=== PATIENT | female | born 1950 | race Caucasian/White ===

== ENCOUNTER 2018-10-24 19:44 | Observation (INO) | payer MEDICARE, BC ==
[~2018-10-24] VITALS: Ht 154.9 cm; Wt 77.3 kg
[2018-10-24] MEDS ORDERED: CATAPRES0.1 MG (19:51)
[2018-10-24] MEDS ORDERED: LIPITOR20 MG (19:51)
[2018-10-24] MEDS ORDERED: LISINOPRIL10 MG (19:51)
[2018-10-24] MEDS ORDERED: AMBIEN10 MG PO (19:51)
[2018-10-24 20:19] LABS: BASOPHILS 0.9 % (0-2); EOSINOPHILS 1.9 % (0-7); HEMATOCRIT 36.5 % (36.0-48.0); HEMOGLOBIN 12.5 g/dL (12-16); IMMATURE GRANULOCYTES 0.3 % (0-5); LYMPHOCYTES 41.3 % (15-50); MCH 30.3 pg (26.0-34.0); MCHC 34.2 g/dL (31.0-37.0); MCV 88.6 fL (80.0-100.0); MEAN PLATELET VOLUME 8.9 fL (7.4-10.4); MONOCYTES 9.8 % (2-11); NEUTROPHILS 45.8 % (40-80); PLATELET COUNT 210 10x3/uL (130-400); RBC 4.12 10x6/uL (4.00-5.40); RDW 13.7 % (11.5-14.5); WBC 6.9 10x3/uL (4.8-10.8)
[2018-10-24] MEDS ORDERED: SYNTHROID25 MCG (20:19)
[2018-10-24] MEDS ORDERED: HYDROCHLOROTHIA50 MG (20:24)
[2018-10-24] MEDS ORDERED: COZAAR100 MG PO (20:25)
[2018-10-24] MEDS ORDERED: POTASSIUM CHLO10 ME1 PO (20:25)
[2018-10-24] MEDS ORDERED: SYNTHROID125 MCG PO (20:26)
[2018-10-24] MEDS ORDERED: OXYBUTYNIN CHLOR5 MG PO (20:26)
[2018-10-24 20:29] LABS: APTT 39.7 SECONDS (22.8-39.4); INR 1.23 (0.85-1.17)
[2018-10-24 20:41] LABS: ALBUMIN 3.5 g/dL (3.4-5.0); ANION GAP 11.8 mmol/L (8-16); BILIRUBIN - TOTAL 0.74 mg/dL (0.2-1.3); CALCIUM 8.9 mg/dL (8.5-10.1); CARBON DIOXIDE 27.9 mmol/L (21.0-32.0); PROTEIN - SERUM 6.8 g/dL (6.4-8.2)
[2018-10-24 20:46] LABS: POTASSIUM - SERUM 2.7 mmol/L (3.5-5.1)
--- NOTE | 2018-10-24 21:45 | NUR ---
PT TO SURGERY AT THIS TIME.
--- NOTE | 2018-10-24 22:30 | NUR ---
RECIEVED TO FLOOR ACCOMPANIED BY STAFF AND FAMILY. A&O X 4, DENIES PAIN AT THIS TIME. PERIPHERAL PULSES PALPABLE. ABDUCTION PILLOW IN USE. PT VOICED URGE TO VOID, VOIDED CLEAR, YELLOW, URINE. VITALS STABLE, DENIES CHILLS/SHIVERING. DENIES FURTHER NEEDS AT THIS TIME. WILL CONTINUE TO MONITOR.
[2018-10-24 22:50] VITALS: BP 122/59
--- NOTE | 2018-10-25 04:34 | NUR ---
I have reviewed this patient and I concur with the Shift Assessment completed by the Licensed Practical Nurse today this shift.
[2018-10-25 05:40] VITALS: BP 119/50
[2018-10-25 05:43] VITALS: BP 122/59; Ht 154.9 cm; Wt 77.3 kg
[2018-10-25 06:41] LABS: BASOPHILS 0.2 % (0-2); EOSINOPHILS 0 % (0-7); HEMATOCRIT 36.4 % (36.0-48.0); HEMOGLOBIN 12.3 g/dL (12-16); IMMATURE GRANULOCYTES 0.3 % (0-5); LYMPHOCYTES 10.6 % (15-50); MCH 30.1 pg (26.0-34.0); MCHC 33.8 g/dL (31.0-37.0); MCV 89.2 fL (80.0-100.0); MEAN PLATELET VOLUME 9.5 fL (7.4-10.4); MONOCYTES 1.1 % (2-11); NEUTROPHILS 87.8 % (40-80); PLATELET COUNT 220 10x3/uL (130-400); RBC 4.08 10x6/uL (4.00-5.40); RDW 13.8 % (11.5-14.5); WBC 6.3 10x3/uL (4.8-10.8)
[2018-10-25 07:04] LABS: ALBUMIN 2.9 g/dL (3.4-5.0); BILIRUBIN - TOTAL 0.6 mg/dL (0.2-1.3); CALCIUM 8.4 mg/dL (8.5-10.1); CARBON DIOXIDE 23.1 mmol/L (21.0-32.0); PROTEIN - SERUM 6.2 g/dL (6.4-8.2)
[2018-10-25 07:24] LABS: ANION GAP 16.6 mmol/L (8-16)
[2018-10-25 07:29] LABS: POTASSIUM - SERUM 2.7 mmol/L (3.5-5.1)
--- NOTE | 2018-10-25 08:15 | NUR ---
AWAKE AND ALERT. ORIENTED X3. NO C/O AT THIS TIME. LUNGS ARE CLEAR BIALTERALLY, NO COUGH NOTED. SKIN IS INTACT WITHOUT REDNESS. IV TO RIGHT AC IS PATENT WITHOUT REDNESS AT INSERTION SITE. TREATED LOW POTASSIUM AT THIS TIME. DENIES NEEDS.
[2018-10-25 08:28] VITALS: BP 114/50
--- NOTE | 2018-10-25 10:00 | NUR ---
RESTING QUIETLY IN BED. DENIES NEEDS.
[2018-10-25 12:42] VITALS: BP 123/48
--- NOTE | 2018-10-25 13:38 | MORECARE ---
CASE MANAGEMENT DISCHARGE SUMMARY PATIENT: EWA MYAER UNIT: [id number] ADM DATE: 10/24/18 AGE: 68 : 49 SEX: F ROOM/BED: D.2206 AUTHOR: ETHEL STRICKLAND PHYSICIAN: REFERRING PHYSICIAN: LISHA RAUSCH MD DATE OF SERVICE: 10/25/18 Discharge Plan Patient Name: EWA MAYER [facility] : 1950 Planned Disposition: Home Anticipated Discharge Date: Discharge Date: Expected LOS: Initial Reviewer: [email or web address] Initial Review Date: 10/24/2018 Generated: 10/25/18 2:37 pm DCPIA - Discharge Planning Initial Assessment Updated by [email or web address]: Yvette Preston on 10/25/18 1:37 pm * Is the patient Alert and Oriented? Yes * How many steps to enter\exit or inside your home? * PCP NONE * Pharmacy [facility] [address] * Preadmission Environment Home with Family * ADLs Independent * Equipment Back Brace Bedside Commode * List name and contact numbers for known caregivers / representatives who currently or will assist patient after discharge: CHARISSE MIKE [phone] * Verbal permission to speak to the caregivers and representatives has been obtained from the patient. N/A * Community resources currently utilized None * Additional services required to return to the preadmission environment? Yes * Can the patient safely return to the preadmission environment? Yes * Has this patient been hospitalized within the prior 30 days at any hospital? No External Providers External Provider: [facility] Next Contact Date: Service Request Date: Service Type: Resolution: Reviewer: Comments: Patient Name: EWA MAYER Page 53944 at 1338 All edits/amendments must be made on the electronic document DICTATION DATE: 10/25/181336 BIOMEDICAL ENGINEERING DIRECTOR: HONG 10/25/181336 RPT#: [id number] DC DATE: STATUS: ADM IN [facility] [address] [place] [address] END OF REPORT
--- NOTE | 2018-10-25 13:48 | MORECARE ---
CASE MANAGEMENT DISCHARGE SUMMARY PATIENT: EWA MAYER UNIT: [id number] ADM DATE: 10/24/18 AGE: 68 : 49 SEX: F ROOM/BED: D.2206 AUTHOR: MARCO ADOC PHYSICIAN: REFERRING PHYSICIAN: LISHA RAUSCH MD DATE OF SERVICE: 10/25/18 Discharge Plan Patient Name: EWA MAYER Facility: [facility]:[place] : 1950 Planned Disposition: Home Anticipated Discharge Date: Discharge Date: Expected LOS: Initial Reviewer: [email or web address] Initial Review Date: 10/24/2018 Generated: 10/25/18 2:48 pm Comments DCP- Discharge Planning Updated by [email or web address]: Yvette Preston on 10/25/18 12:[address] Patient Name: EWA MAYER Admission Status: ER Accout number: [id number] Admission Date: 10-24-2018 : 1950 Admission Diagnosis: Attending: LISHA RAUSCH Current LOS: 1 Anticipated DC Date: Planned Disposition: Home Primary Insurance: MEDICARE A & B Discharge Planning Comments: CM met with patient to complete initial dc planning assessment. CM educated patient on the CM role and verbal consent given by patient to complete assessment. Patient has just moved to [place] 3 days ago and her 15 year old grandchild will be living with her. Her sister will be driving her home. At discharge patient plans to return home and feels this is a safe discharge. CM discussed availability of home health, rehab services, and medical equipment. She did not want home health. She has a Bedside Commode & has a walker, but it is packed somewhere. She would like to get another one if possible. I have sent the order to [facility] (patient did not care where is was obtained from) CM will continue to follow and will assist as needed with dc plans/needs. Forestry Workers: Yvette Preston DCPIA - Discharge Planning Initial Assessment Updated by [email or web address]: Yvette Preston on 10/25/18 1:37 pm * Is the patient Alert and Oriented? Yes * How many steps to enter\exit or inside your home? * PCP NONE * Pharmacy [facility] [address] * Preadmission Environment Home with Family * ADLs Independent * Equipment Back Brace Bedside Commode * List name and contact numbers for known caregivers / representatives who currently or will assist patient after discharge: CHARISSE MCKEON [phone] * Verbal permission to speak to the caregivers and representatives has been obtained from the patient. N/A * Community resources currently utilized None * Additional services required to return to the preadmission environment? Yes * Can the patient safely return to the preadmission environment? Yes * Has this patient been hospitalized within the prior 30 days at any hospital? No Last DP export: 10/25/18 12:38 pm Patient Name: EWA MAYER Page [phone] at 1348 All edits/amendments must be made on the electronic document DICTATION DATE: 10/25/181347 NETBACKUP ADMINISTRATOR: HONG 10/25/18 1348 RPT#: [id number] DC DATE: STATUS: ADM IN [facility] [address] [place] [address] END OF REPORT
[2018-10-25 16:06] VITALS: BP 106/52
--- NOTE | 2018-10-25 17:23 | NUR ---
DISCHARGED TO HOME AMBULATORY WITH FAMILY. DISCHARGE INSTRUCTIONS GIVEN BOTH VERBALLY AND WRITTEN. ALL QUESTIONS ANSWERED. PATIENT VERBALIZED UNDERSTANDING OF SAME. IV TO RIGHT FOREARM D/C WITH CATHETER INTACT. ALL BELONGINGS WITH PATIENT. NO NEW PRESCRIPTIONS NEEDED.
--- NOTE | 2018-10-28 14:18 | MORECARE ---
CASE MANAGEMENT DISCHARGE SUMMARY PATIENT: EWA MAYER UNIT: [id number] ADM DATE: 10/24/18 AGE: 68 : 49 SEX: F ROOM/BED: D.2206 AUTHOR: MARCO ADOC PHYSICIAN: REFERRING PHYSICIAN: LISHA RAUSCH MD DATE OF SERVICE: 10/28/18 Discharge Plan Patient Name: EWA MAYER Facility: [facility]:[place] : 1950 Planned Disposition: Home Anticipated Discharge Date: Discharge Date: 10/25/2018 Expected LOS: Initial Reviewer: [email or web address] Initial Review Date: 10/24/2018 Generated: 10/28/18 3:18 pm Comments DCP- Discharge Planning Updated by [email or web address]: Yvette Preston on 10/25/18 12:[address] Patient Name: EWA MAYER Admission Status: ER Accout number: [id number] Admission Date: 10-24-2018 : 1950 Admission Diagnosis: Attending: LISHA RAUSCH Current LOS: 1 Anticipated DC Date: Planned Disposition: Home Primary Insurance: MEDICARE A & B Discharge Planning Comments: CM met with patient to complete initial dc planning assessment. CM educated patient on the CM role and verbal consent given by patient to complete assessment. Patient has just moved to [place] 3 days ago and her 15 year old grandchild will be living with her. Her sister will be driving her home. At discharge patient plans to return home and feels this is a safe discharge. CM discussed availability of home health, rehab services, and medical equipment. She did not want home health. She has a Bedside Commode & has a walker, but it is packed somewhere. She would like to get another one if possible. I have sent the order to [facility] (patient did not care where is was obtained from) CM will continue to follow and will assist as needed with dc plans/needs. Uniforms Sales Representative: Yvette Preston DCPIA - Discharge Planning Initial Assessment Updated by [email or web address]: Yvette Preston on 10/25/18 1:37 pm * Is the patient Alert and Oriented? Yes * How many steps to enter\exit or inside your home? * PCP NONE * Pharmacy [facility] [address] * Preadmission Environment Home with Family * ADLs Independent * Equipment Back Brace Bedside Commode * List name and contact numbers for known caregivers / representatives who currently or will assist patient after discharge: CHARISSE MCKEON [phone] * Verbal permission to speak to the caregivers and representatives has been obtained from the patient. N/A * Community resources currently utilized None * Additional services required to return to the preadmission environment? Yes * Can the patient safely return to the preadmission environment? Yes * Has this patient been hospitalized within the prior 30 days at any hospital? No Last DP export: 10/25/18 12:48 pm Patient Name: EWA MAYER Page 74513 at 1418 All edits/amendments must be made on the electronic document DICTATION DATE: 10/28/181417 CALCULUS PROFESSOR: HONG 10/28/181417 RPT#: [id number] DC DATE:10/25/18 STATUS: DIS IN [facility] [address] [place] [address] END OF REPORT
== END 2018-10-25 17:25 | disposition home or self-care (01) ==
LOC: D.ER 19:44 → OBSVTIME 21:16 → D.MS 21:16
PROVIDERS: Family Medicine; ADMIT Emergency Medicine; ATTEND Emergency Medicine
DX: S73.005A Unspecified dislocation of left hip, initial encounter (principal)

== ENCOUNTER → 2018-12-21 10:00 | Outpatient (CLI) | payer MEDICARE, BC ==
[2018-10-25 05:43] VITALS: BMI 32.2
[~2018-12-21 10:00] MED LIST: AMBIEN10 MG PO; CATAPRES0.1 MG; CATAPRES0.1 MG PO; COZAAR100 MG PO; HYDROCHLOROTHIA50 MG; LIPITOR20 MG; LISINOPRIL10 MG; OXYBUTYNIN CHLOR5 MG PO; POTASSIUM CHLO10 ME1 PO; SYNTHROID125 MCG PO; SYNTHROID25 MCG; TORADOL10 MG PO
== END | disposition home or self-care (01) ==
LOC: D.MAMMO 09:30
PROVIDERS: ATTEND Emergency Medicine
DX: Z12.31 Encounter for screening mammogram for malignant neoplasm of breast (principal)

== ENCOUNTER 2019-01-20 13:49 | Emergency (ER) | payer MEDICARE, BC ==
[~2019-01-20] VITALS: Ht 154.9 cm; Wt 77.3 kg
[~2019-01-20 13:49] MED LIST changes: -CATAPRES0.1 MG PO; -TORADOL10 MG PO
[2019-01-20 14:05] VITALS: Ht 154.9 cm; Wt 77.3 kg
[2019-01-20] MEDS ORDERED: CATAPRES0.1 MG PO (14:09)
[2019-01-20] MEDS ORDERED: TORADOL10 MG PO (19:08)
[2019-01-20 19:44] VITALS: BP 153/47
== END 2019-01-20 19:48 | disposition home or self-care (01) ==
LOC: D.ER 13:49
DX: M25.552 Pain in left hip (principal); I10 Essential (primary) hypertension

== ENCOUNTER 2019-01-22 08:00 | Outpatient (CLI) | payer MEDICARE, BC ==
[2019-01-20 14:05] VITALS: BMI 32.2
[~2019-01-22 08:00] MED LIST changes: +CATAPRES0.1 MG PO; +TORADOL10 MG PO
== END 2019-01-22 23:59 | disposition home or self-care (01) ==
LOC: D.MAMMO 08:00
PROVIDERS: ATTEND Emergency Medicine
DX: R92.8 Other abnormal and inconclusive findings on diagnostic imaging of breast (principal)

== ENCOUNTER 2019-02-04 10:42 | Inpatient (IN) | payer MEDICARE, BC ==
[~2019-02-04] VITALS: Ht 154.9 cm; Wt 77.3 kg
[2019-02-04 12:24] VITALS: BP 152/72
--- NOTE | 2019-02-04 13:25 | NUR ---
SEE PAPER CHARTING FOR PROCEDURAL DOCUMENTATION
[2019-02-04 15:08] VITALS: BP 139/66
[2019-02-04 15:31] VITALS: BP 135/58
--- NOTE | 2019-02-04 17:15 | NUR ---
PATIENT TO OR FOR CLOSED REDUCTION OF LEFT HIP
[2019-02-04 17:50] LABS: BASOPHILS 0.4 % (0-2); EOSINOPHILS 0.4 % (0-7); HEMATOCRIT 36.5 % (36.0-48.0); HEMOGLOBIN 11.9 g/dL (12-16); IMMATURE GRANULOCYTES 0.4 % (0-5); LYMPHOCYTES 20.1 % (15-50); MCH 30.1 pg (26.0-34.0); MCHC 32.6 g/dL (31.0-37.0); MCV 92.4 fL (80.0-100.0); MEAN PLATELET VOLUME 8.7 fL (7.4-10.4); MONOCYTES 6.8 % (2-11); NEUTROPHILS 71.9 % (40-80); PLATELET COUNT 237 10x3/uL (130-400); RBC 3.95 10x6/uL (4.00-5.40); RDW 13.3 % (11.5-14.5); WBC 6.7 10x3/uL (4.8-10.8)
[2019-02-04 17:57] LABS: APTT 32.8 SECONDS (22.8-39.4); INR 1.09 (0.85-1.17); PROTIME 13.6 SECONDS (11.6-15.0)
--- NOTE | 2019-02-04 18:07 | MORECARE ---
CASE MANAGEMENT DISCHARGE SUMMARY PATIENT: EWA MAYER UNIT: [id number] ADM DATE: 02/04/19 AGE: 68 : 49 SEX: F ROOM/BED: D.2214 AUTHOR: MARCO A,DOC PHYSICIAN: REFERRING PHYSICIAN: ADONAY VOSS MD DATE OF SERVICE: 02/04/19 Discharge Plan Patient Name: EWA MAYER Facility: [facility]:[place] : 1950 Planned Disposition: Outpatient PT\OT Anticipated Discharge Date: 02/06/19 Discharge Date: Expected LOS: 2 Initial Reviewer: [email or web address] Initial Review Date: 02/04/2019 Generated: 02/04/19 7:07 pm DCP- Discharge Planning Updated by [email or web address]: Stephanie Handy on 02/04/19 5:[address] DC PLAN: Unsure at this time - depends on what procedure she has. ANTICIPATED DC NEEDS: Rehab, HH, or back to OP PT. CM met with patient to complete initial dc planning assessment. CM educated patient on the CM role and verbal consent given by patient to complete assessment. CM verified patient's address, phone number, and emergency contact phone numbers. Patient lives at home and reports her 15 yo grandson lives with her. At discharge patient plans to return home if able but stated it depends on what Dr. Salinas thinks she needs to do. She is currently in OP Physical Therapy at [facility]. CM discussed availability of home health, rehab services, and medical equipment. Transportation provider at discharge will be her grandson or her sister . CM will continue to follow and will assist as needed with dc plans/needs. Stephanie Handy RN, [facility] DCPIA - Discharge Planning Initial Assessment Updated by [email or web address]: Stephanie Handy on 02/04/19 6:04 pm * Is the patient Alert and Oriented? Yes * PCP Dr. Fischer * Pharmacy Mail order or [facility] [address] * Preadmission Environment Home with Family * ADLs Independent * Equipment Bedside Commode Rolling Walker * List name and contact numbers for known caregivers / representatives who currently or will assist patient after discharge: Jed Mayer - son - [phone] Colette Lucas - sister - [phone] * Verbal permission to speak to the caregivers and representatives has been obtained from the patient. Yes * Community resources currently utilized Other * Please name any agencies selected above. OP physical therapy @ [facility] * Additional services required to return to the preadmission environment? Yes * Can the patient safely return to the preadmission environment? Yes * Has this patient been hospitalized within the prior 30 days at any hospital? No Patient Name: EWA MAYER Page 19295 at 1807 All edits/amendments must be made on the electronic document DICTATION DATE: 02/04/191806 OR ASSISTANT: HONG 02/04/191806 RPT#: [id number] DC DATE: STATUS: ADM IN [facility] [address] [place] [address] END OF REPORT
[2019-02-04 18:11] LABS: ALBUMIN 3.2 g/dL (3.4-5.0); ANION GAP 12.2 mmol/L (8-16); BILIRUBIN - TOTAL 0.75 mg/dL (0.2-1.3); CALCIUM 8.6 mg/dL (8.5-10.1); CARBON DIOXIDE 28.2 mmol/L (21.0-32.0); CREATININE - SERUM 0.9 mg/dL (0.6-1.3); MAGNESIUM - SERUM 1.5 mg/dL (1.8-2.4); POTASSIUM - SERUM 3.4 mmol/L (3.5-5.1); PROTEIN - SERUM 6.2 g/dL (6.4-8.2)
[2019-02-04 18:35] VITALS: BP 140/51; Ht 154.9 cm; Wt 77.3 kg
[2019-02-04 18:49] VITALS: BP 132/55
--- NOTE | 2019-02-04 18:52 | NUR ---
PATIENT RECIEVED FROM RECOVERY POST LEFT HIP CLOSED REDUCTION. ALERT, NO PAIN AT THIS TIME
[2019-02-04 20:00] VITALS: BP 131/60
--- NOTE | 2019-02-04 20:00 | NUR ---
PT SITTING UP IN BED WITHOUT DISTRESS, AOX4. EATING SANDWICH. FAMILY AT BEDSIDE. DENIES PAIN OR NEEDS. CL IN REACH, WILL CTM
[2019-02-05] VITALS: BP 119/47
[2019-02-05 03:53] LABS: APPEARANCE CLEAR (CLEAR); BILIRUBIN NEGATIVE (NEGATIVE); COLOR YELLOW (YELLOW); GLUCOSE NEGATIVE (NEGATIVE); KETONE NEGATIVE (NEGATIVE); NITRITE NEGATIVE (NEGATIVE); PROTEIN 1+ mg/dL (NEGATIVE); SPECIFIC GRAVITY 1.015 (1.005-1.020); UROBILINOGEN NORMAL (NORMAL)
[2019-02-05 03:54] LABS: BACTERIA FEW /hpf (NEGATIVE); EPITHELIAL CELLS 0-5 /hpf (0-5); RED CELLS - URINE 0-5 /hpf (0-5); WHITE CELLS - URINE 0-5 /hpf (NEGATIVE)
[2019-02-05 04:30] VITALS: BP 119/48
[2019-02-05 06:23] LABS: IMMATURE GRANULOCYTES 0.5 % (0-5)
[2019-02-05 06:39] LABS: HEMATOCRIT 34.3 % (36.0-48.0); HEMOGLOBIN 11.1 g/dL (12-16); MCH 30.5 pg (26.0-34.0); MCHC 32.4 g/dL (31.0-37.0); MCV 94.2 fL (80.0-100.0); MEAN PLATELET VOLUME 9.1 fL (7.4-10.4); PLATELET COUNT 232 10x3/uL (130-400); RBC 3.64 10x6/uL (4.00-5.40); RDW 13.6 % (11.5-14.5)
[2019-02-05 06:42] LABS: ALBUMIN 2.7 g/dL (3.4-5.0); ALKALINE PHOSPHATASE 80 U/L (46-116); ALT (SGPT) 13 U/L (10-68); BILIRUBIN - TOTAL 0.85 mg/dL (0.2-1.3); CALC OSMOLALITY 283 mosm/kg (275-300); CALCIUM 7.9 mg/dL (8.5-10.1); CARBON DIOXIDE 23.5 mmol/L (21.0-32.0); CHLORIDE - SERUM 110 mmol/L (98-107); CREATININE - SERUM 0.8 mg/dL (0.6-1.3); GLUCOSE 76 mg/dL (74-106); MAGNESIUM - SERUM 1.4 mg/dL (1.8-2.4); POTASSIUM - SERUM 3.1 mmol/L (3.5-5.1); PROTEIN - SERUM 5.7 g/dL (6.4-8.2); SODIUM 142 mmol/L (136-145); UREA NITROGEN 18 mg/dL (7-18); eGFR NON AFRICAN AMERICAN 75 mL/min (90-120)
--- NOTE | 2019-02-05 06:49 | PRO ---
PATIENT:EWA MAYER MEDICAL RECORD: [id number] : [birth year] LOCATION:Renée Renée2214 ADMISSION DATE: 02/04/19 PROCEDURE PERFORMED BY: ADONAY SANDOVAL DO DATE OF PROCEDURE: 02/04/2019 PROCEDURE PERFORMED: Attempted reduction of the left periprosthetic hip dislocation. The patient was aware of the risks including fracture, unable to reduce and have to go to the OR, need for further surgery, and she signed the consent. This was done in the ER. DESCRIPTION OF PROCEDURE: A time-out had been performed. Everyone was in agreement with the correct side, site, patient and procedure. The patient was then given propofol. I was assisted by Keaton Lewis MD. When she was given the propofol and under conscious sedation, the reduction maneuver was attempted and was unsuccessful. This was tried and could not do it, and she had this done prior and had to be taken to the OR to be paralyzed to do it. She was then awakened and informed of this and admitted to medicine. TRANSINT:[id number] Voice Confirmation ID: [id number] DOCUMENT ID: [id number] ADONAY SANDOVAL DO at 0649 CC: [id number] DICTATION DATE: 02/04/19 1509 WOOD TILE INSTALLER: 02/05/19 0516 ADM IN [place] [address] [place] [address]
--- NOTE | 2019-02-05 06:49 | OP ---
PATIENT NAME: EWA MAYER MEDICAL RECORD: [id number] :[birth year] LOCATION:Sammi.MS [place]2214 ADMISSION DATE:02/04/19 SURGEON: AODNAY SANDOVAL DO DATE OF OPERATION: 02/04/2019 PROCEDURE PERFORMED: Left hip periprosthetic closed reduction. PREOPERATIVE DIAGNOSIS: Left hip periprosthetic dislocation of the joint. POSTOPERATIVE DIAGNOSIS: Left hip periprosthetic dislocation of the joint. INDICATIONS: Ms. Mayer is a 68-year-old female who had a left hip dislocation several months ago. This is not the first time it came out and then today she did physical therapy and it came out again. She was brought in by ambulance and seen in the ER that attempted reduction there and it was not successful, informed that she would need to go to the OR and get her more relaxed to get it reduced. She was okay with that there is a risk of fracture, bleeding, need for further surgery, damage to vessels and nerves and she signed the consent. SURGEON: Adonay Sandoval DO DESCRIPTION OF PROCEDURE: The patient was taken to the operative suite, given propofol and then reduction maneuvers were made. The hip was reduced. X-rays were taken to confirm the reduction. She was then awakened and taken to the recovery in stable condition. BLOOD LOSS: Minimal. COMPLICATIONS: None. TRANSINT:[id number] Voice Confirmation ID: [id number] DOCUMENT ID: [id number] ADONAY SANDOVAL DO at 0649 CC: [id number] DICTATION DATE: 02/04/191814 DEAN OF MEN: 02/04/19 2140 ADM IN [place] [id number] [place] [address]
--- NOTE | 2019-02-05 08:45 | NUR ---
PATIENT IN BED WITH IV INTACT. NO COMPLAINTS OR SIGNS OF DISTRESS. CALL LIGHT WITHIN REACH.
[2019-02-05 09:00] VITALS: BP 137/56
[2019-02-05 09:45] LABS: CRENATED CELLS OCC; EOSINOPHILS 3 % (0-7); LYMPHOCYTES 31 % (15-50); MONOCYTES 8 % (2-11); NEUTROPHILS 58 % (40-80); PLATELET ESTIMATE NORMAL; ROULEAUX OCC
[2019-02-05 13:02] VITALS: BP 136/63
--- NOTE | 2019-02-05 13:30 | NUR ---
NURSING STUDENTS AND INSTRUCTOR REMOVED COONEY AND IV AT THIS TIME. PATIENT TOLERATED WITH SMALL AMOUNT OF PAIN. CALL LIGHT WITHIN REACH.
--- NOTE | 2019-02-05 13:45 | NUR ---
PATIENT UP AND AMBULATING WITH BRACE ON WITH PT. FAMILY AT BEDSIDE. CALL LIGHT WITHIN REACH.
--- NOTE | 2019-02-05 14:00 | NUR ---
PATIENT VOIDED WITH NO PROBLEMS AT THIS TIME.
--- NOTE | 2019-02-05 14:21 | NUR ---
PATIENT RECIEVED DC INSTRUCTIONS AND VERBALIZED UNDERSTANDING. NO QUESTIONS AT THIS TIME. FAMILY AT BEDSIDE. CALL LIGHT WITHIN REACH.
--- NOTE | 2019-02-05 14:22 | NUR ---
PATIENT ESCORTED DOWN TO PRIVATE VEHICLE VIA WC WITH PERSONAL BELONGINGS BY HOSPITAL VOLUNTEER.
--- NOTE | 2019-02-05 14:36 | MORECARE ---
CASE MANAGEMENT DISCHARGE SUMMARY PATIENT: EWA MAYER UNIT: [id number] ADM DATE: 02/04/19 AGE: 68 : 49 SEX: F ROOM/BED: D.2214 AUTHOR: MARCO A,DOC PHYSICIAN: REFERRING PHYSICIAN: ADONAY VOSS MD DATE OF SERVICE: 02/05/19 Discharge Plan Patient Name: EWA MAYER Facility: [facility]:[place] : 1950 Planned Disposition: Outpatient PT\OT Anticipated Discharge Date: 02/06/19 Discharge Date: 02/05/2019 Expected LOS: 2 Initial Reviewer: [email or web address] Initial Review Date: 02/04/2019 Generated: 02/05/19 3:36 pm Comments DCP- Discharge Planning Updated by [email or web address]: Yvette Mohan on 02/05/19 1:[address] Patient discharging home today, she stated that she has done this x4 times and does not needs anything from a Cm standpoint. She stated that she would talk to Dr Farris about PT. Pt's sister here to superintendent drivers her home. DCP- Discharge Planning Updated by [email or web address]: Yvette Mohan on 02/05/19 1:[address] DC PLAN: Unsure at this time - depends on what procedure she has. ANTICIPATED DC NEEDS: Rehab, HH, or back to OP PT. CM met with patient to complete initial dc planning assessment. CM educated patient on the CM role and verbal consent given by patient to complete assessment. CM verified patient's address, phone number, and emergency contact phone numbers. Patient lives at home and reports her 15 yo grandson lives with her. At discharge patient plans to return home if able but stated it depends on what Dr. Salinas thinks she needs to do. She is currently in OP Physical Therapy at [facility]. CM discussed availability of home health, rehab services, and medical equipment. Transportation provider at discharge will be her grandson or her sister . CM will continue to follow and will assist as needed with dc plans/needs. Stephanie Handy RN, [facility] DCPIA - Discharge Planning Initial Assessment Updated by [email or web address]: Stephanie Handy on 02/04/19 6:04 pm * Is the patient Alert and Oriented? Yes * PCP Dr. Fischer * Pharmacy Mail order or [facility] [address] * Preadmission Environment Home with Family * ADLs Independent * Equipment Bedside Commode Rolling Walker * List name and contact numbers for known caregivers / representatives who currently or will assist patient after discharge: Jed Mayer - son - [phone] Colette Lucas - sister - [phone] * Verbal permission to speak to the caregivers and representatives has been obtained from the patient. Yes * Community resources currently utilized Other * Please name any agencies selected above. OP physical therapy @ [facility] * Additional services required to return to the preadmission environment? Yes * Can the patient safely return to the preadmission environment? Yes * Has this patient been hospitalized within the prior 30 days at any hospital? No Last DP export: 02/04/19 5:07 Patient Name: EWA MAYER Page [phone] at 1436 All edits/amendments must be made on the electronic document DICTATION DATE: 02/05/191435 INSIDE CHANNEL ACCOUNT MANAGER: HONG 02/05/191435 RPT#: [id number] DC DATE:02/05/19 STATUS: DIS IN [facility] [address] [place] [address] END OF REPORT
--- NOTE | 2019-02-06 11:03 | MORECARE ---
CASE MANAGEMENT DISCHARGE SUMMARY PATIENT: EWA MAYER UNIT: [id number] ADM DATE: 02/04/19 AGE: 68 : [birth year] SEX: F ROOM/BED: D.2214 AUTHOR: MARCO A,DOC PHYSICIAN: REFERRING PHYSICIAN: ADONAY VOSS MD DATE OF SERVICE: 02/06/19 Discharge Plan Patient Name: EWA MAYER Facility: [facility]:[place] : 1950 Planned Disposition: Outpatient PT\OT Anticipated Discharge Date: 02/06/19 Discharge Date: 02/05/2019 Expected LOS: 2 Initial Reviewer: [email or web address] Initial Review Date: 02/04/2019 Generated: 02/06/19 12:02 pm Comments DCP- Discharge Planning Updated by [email or web address]: Yvette Mohan on 02/05/19 1:[address] Patient discharging home today, she stated that she has done this x4 times and does not needs anything from a Cm standpoint. She stated that she would talk to Dr Farris about PT. Pt's sister here to city driver her home. DCP- Discharge Planning Updated by [email or web address]: Yvette Mohan on 02/05/19 1:[address] DC PLAN: Unsure at this time - depends on what procedure she has. ANTICIPATED DC NEEDS: Rehab, HH, or back to OP PT. CM met with patient to complete initial dc planning assessment. CM educated patient on the CM role and verbal consent given by patient to complete assessment. CM verified patient's address, phone number, and emergency contact phone numbers. Patient lives at home and reports her 15 yo grandson lives with her. At discharge patient plans to return home if able but stated it depends on what Dr. Salinas thinks she needs to do. She is currently in OP Physical Therapy at [facility]. CM discussed availability of home health, rehab services, and medical equipment. Transportation provider at discharge will be her grandson or her sister . CM will continue to follow and will assist as needed with dc plans/needs. Stephanie Handy RN, [facility] DCPIA - Discharge Planning Initial Assessment Updated by [email or web address]: Stephanie Handy on 02/04/19 6:04 pm * Is the patient Alert and Oriented? Yes * PCP Dr. Fischer * Pharmacy Mail order or [facility] [address] * Preadmission Environment Home with Family * ADLs Independent * Equipment Bedside Commode Rolling Walker * List name and contact numbers for known caregivers / representatives who currently or will assist patient after discharge: Jed Mayer - son - [phone] Colette Lucas - sister - [phone] * Verbal permission to speak to the caregivers and representatives has been obtained from the patient. Yes * Community resources currently utilized Other * Please name any agencies selected above. OP physical therapy @ [facility] * Additional services required to return to the preadmission environment? Yes * Can the patient safely return to the preadmission environment? Yes * Has this patient been hospitalized within the prior 30 days at any hospital? No Last DP export: 02/05/19 1:36 Patient Name: EWA MAYER Page [phone] at 1103 All edits/amendments must be made on the electronic document DICTATION DATE: 02/06/191101 CUTTING MACHINE OPERATOR: HONG 02/06/191101 RPT#: [id number] DC DATE:02/05/19 STATUS: DIS IN [facility] [address] [place] [address] END OF REPORT
== END 2019-02-05 14:27 | disposition home or self-care (01) | DRG 561 ==
LOC: D.ER 10:42 → D.MS 14:52
PROVIDERS: Family Medicine; Orthopaedic Surgery; ADMIT Family Medicine; ATTEND Family Medicine
PROC: 0SSBXZZ Reposition Left Hip Joint, External Approach (ICD-10-PCS; principal; 2019-02-04 16:30)
DX: T84.021A Dislocation of internal left hip prosthesis, initial encounter (principal); I10 Essential (primary) hypertension; E03.9 Hypothyroidism, unspecified; E66.9 Obesity, unspecified; Z68.32 Body mass index [BMI] 32.0-32.9, adult; M19.90 Unspecified osteoarthritis, unspecified site

== ENCOUNTER 2019-07-07 19:14 | Observation (INO) | payer MEDICARE, BC ==
[~2019-07-07] VITALS: Ht 154.9 cm; Wt 81.8 kg
[2019-07-07 21:16] VITALS: BP 144/41
--- NOTE | 2019-07-07 21:16 | NUR ---
CONSENT SIGNED. CHEYENNE ELLIS CRNA AT BEDSIDE.
[2019-07-07 21:35] VITALS: BP 115/57
[2019-07-07 22:15] VITALS: BP 121/46
[2019-07-07 22:55] VITALS: BP 115/47
--- NOTE | 2019-07-07 23:00 | NUR ---
PT ABLE TO DRINK WATER IS ALERT AND ORIENTED X 3
--- NOTE | 2019-07-07 23:20 | NUR ---
PT ARRIVED TO FLOOR A0X4. SLEEPY BUT AWAKENS EASILY. TRANSFERED TO BED, TOLERATED WELL. PT STATES NO PAIN TO LEFT HIP AT THIS TIME. ASSESSMENT COMPLETE. IV LEFT AC INFUSING NS @ [facility]. DENIES NEEDS. CL IN REACH, BED ALARM ON, WILL CTM
[2019-07-08] VITALS: BP 118/64
[2019-07-08 00:42] VITALS: BP 118/64; BMI 34.0
--- NOTE | 2019-07-08 02:06 | NUR ---
PT NEEDING TO VOID, ASSISTED PT ONTO BEDPAN WITHOUT DIFFICULTY. PT TURNS EASILY AND STATES NO PAIN WITH MOVEMENT. WILL CTM
[2019-07-08] MEDS ORDERED: GABAPENTIN300 MG PO (03:36)
[2019-07-08] MEDS ORDERED: FUROSEMIDE20 MG PO (03:36)
[2019-07-08 04:00] VITALS: BP 114/63
[2019-07-08 07:54] VITALS: BP 126/49
--- NOTE | 2019-07-08 08:34 | NUR ---
AWAKE AND ALERT. ORIENTED X3. NO C/O AT THIS TIME. LUNGS ARE CLEAR BILATERALLY, NO COUGH NOTED. SKIN IS INTACT WITHOUT REDNESS. IV TO LEFT FOREARM IS PATENT WITHOUT REDNESS AT INSERTION SITE. REPOSITIONED IN BED FOR COMFORT. BREAKFAST SERVED IN ROOM.
--- NOTE | 2019-07-08 10:00 | NUR ---
ATE MOST OF BREAKFAST. RESTING QUIETLY IN BED. DENIES NEEDS.
--- NOTE | 2019-07-08 11:34 | NUR ---
WORKED WITH PT USING ABDUCTOR BRACE AND DID WELL. CLEARED FOR D/C PER PT.
[2019-07-08 11:52] VITALS: Ht 154.9 cm; Wt 81.8 kg
[2019-07-08 12:06] VITALS: BP 135/72
[2019-07-08 12:26] LABS: BASOPHILS 0.5 % (0-2); EOSINOPHILS 1.8 % (0-7); HEMATOCRIT 35.5 % (36.0-48.0); HEMOGLOBIN 11.3 g/dL (12-16); IMMATURE GRANULOCYTES 0.5 % (0-5); LYMPHOCYTES 31.5 % (15-50); MCH 29.1 pg (26.0-34.0); MCHC 31.8 g/dL (31.0-37.0); MCV 91.5 fL (80.0-100.0); MEAN PLATELET VOLUME 8.4 fL (7.4-10.4); NEUTROPHILS 55.7 % (40-80); RBC 3.88 10x6/uL (4.00-5.40); RDW 13.1 % (11.5-14.5); WBC 4.4 10x3/uL (4.8-10.8)
[2019-07-08 12:37] LABS: % SATURATION 24 % (15-55); IRON 58 ug/dl (35-150); TOTAL IRON BIND CAPACITY 235 ug/dl (260-445); UNSAT IRON BIND CAPACITY 177 ug/dl (150-375)
[2019-07-08 12:59] LABS: PLATELET COUNT 162 10x3/uL (130-400)
[2019-07-08 13:02] LABS: CALC OSMOLALITY 284 mosm/kg (275-300); CALCIUM 8.3 mg/dL (8.5-10.1); CARBON DIOXIDE 29.1 mmol/L (21.0-32.0); CHLORIDE - SERUM 106 mmol/L (98-107); FERRITIN 128 ng/mL (3-244); GLUCOSE 98 mg/dL (74-106); SODIUM 141 mmol/L (136-145); UREA NITROGEN 24 mg/dL (7-18); eGFR NON AFRICAN AMERICAN 58 mL/min (90-120)
[2019-07-08 13:04] LABS: POTASSIUM - SERUM 2.8 mmol/L (3.5-5.1)
--- NOTE | 2019-07-08 13:13 | NUR ---
I CALLED [facility]ERIC AT DR MELANIA MARINO OFFICE IN [place] FOR APPT. I GAVE HER THE INFO AND SHE STATES THEY WILL CALL THE PATIENT FOR APPT.
--- NOTE | 2019-07-08 14:10 | NUR ---
DISCHARGE ORDERS RECEIVED. IV TO LEFT AC D/C WITH CATHETER INTACT. DISCHARGE INSTRUCTIONS GIVEN BOTH VERBALLY AND WRITTEN. ALL QUESTIONS ANSWERED. PATIENT VERBALIZED UNDERSTANDING OF SAME. NO NEW MEDICATIONS ORDERED. WAITING ON RIDE TO D/C. ASSISTED WITH BEDPAN PER STAFF. VOIDED WITHOUT DIFFICULTY.
--- NOTE | 2019-07-08 14:59 | NUR ---
DISCHARGED TO HOME AMBULATORY WITH ABDUCTOR BRACE TO LEFT HIP. ALL BELONGINGS WITH PATIENT.
== END 2019-07-08 15:00 | disposition home or self-care (01) ==
LOC: D.ER 19:14 → D.MS 21:55 → OBSVTIME 22:06 → D.MS 07-08 15:00
PROVIDERS: ADMIT Internal Medicine Nephrology; ATTEND Internal Medicine Nephrology
DX: T84.021A Dislocation of internal left hip prosthesis, initial encounter (principal); X58.XXXA Exposure to other specified factors, initial encounter; I10 Essential (primary) hypertension; E03.9 Hypothyroidism, unspecified

== ENCOUNTER 2019-08-21 16:59 | Inpatient (IN) | payer MEDICARE, BC ==
[~2019-08-21] VITALS: Ht 154.9 cm; Wt 82.1 kg
[~2019-08-21 16:59] MED LIST changes: +FUROSEMIDE20 MG PO; +GABAPENTIN300 MG PO
[2019-08-21] MEDS ORDERED: TIROSINT88 MCG PO (20:11)
[2019-08-22 15:53] VITALS: Ht 154.9 cm; Wt 82.1 kg
[2019-08-23 09:52] VITALS: BP 139/62
[2019-08-23] MEDS ORDERED: HYDROCODON-ACE1 EA10 PO (10:20)
== END 2019-08-23 14:19 | disposition home or self-care (01) | DRG 561 ==
LOC: D.ER 16:59 → D.MS 18:31 → D.M3 18:31 → OBSVTIME 18:31 → D.MS 08-22 17:57
PROVIDERS: ADMIT Orthopaedic Surgery; ATTEND Orthopaedic Surgery
PROC: 0SWBXJZ Revision of Synthetic Substitute in Left Hip Joint, External Approach (ICD-10-PCS; principal; 2019-08-22)
DX: T84.021A Dislocation of internal left hip prosthesis, initial encounter (principal); X58.XXXA Exposure to other specified factors, initial encounter; G35 Multiple sclerosis; K21.9 Gastro-esophageal reflux disease without esophagitis; E03.9 Hypothyroidism, unspecified

== ENCOUNTER 2020-07-09 06:34 | Day surgery (SDC) | payer MEDICARE, BC ==
--- NOTE | 2020-07-08 10:45 | NUR ---
CONFIRMED PT APPT FOR 07/09/20 THINNERS: NO FILMS: PT IS GOING TODAY TO [facility]PRES[employer]IVE TELLER AT [facility] N[facility]SE: YES NPO: PT VERBALIZES UNDERSTANDING TO TAKE BP MEDICATION IN THE MORNING WITH A SIP OF WATER ARRIVAL TIME: 0630
[~2020-07-09] VITALS: Ht 154.9 cm; Wt 84.1 kg
[~2020-07-09 06:34] MED LIST changes: +HYDROCODON-ACE1 EA10 PO; +TIROSINT88 MCG PO
[2020-07-09 06:53] LABS: BASOPHILS 1.1 % (0-2); EOSINOPHILS 3.4 % (0-7); HEMATOCRIT 37.6 % (36.0-48.0); HEMOGLOBIN 12.1 g/dL (12-16); IMMATURE GRANULOCYTES 0.6 % (0-5); LYMPHOCYTE ABS# 1.82 10x3/uL (1.18-3.74); LYMPHOCYTES 34.9 % (15-50); MCHC 32.2 g/dL (31.0-37.0); MCV 90.2 fL (80.0-100.0); MONOCYTES 13.8 % (2-11); NEUTROPHIL ABS# 2.41 10x3/uL (1.56-6.13); NEUTROPHILS 46.2 % (40-80); PLATELET COUNT 263 10x3/uL (130-400); RBC 4.17 10x6/uL (4.00-5.40); RDW 13.4 % (11.5-14.5); WBC 5.2 10x3/uL (4.8-10.8)
[2020-07-09 07:01] LABS: CALCIUM 9.1 mg/dL (8.5-10.1); CARBON DIOXIDE 28.5 mmol/L (21.0-32.0); CREATININE - SERUM 1.2 mg/dL (0.6-1.3); POTASSIUM - SERUM 3.5 mmol/L (3.5-5.1)
[2020-07-09 07:12] LABS: APTT 32.5 SECONDS (22.8-39.4); INR 1.07 (0.85-1.17); PROTIME 12.9 SECONDS (11.6-15.0)
[2020-07-09] MEDS ORDERED: MYRBETRIQ25 MG PO (07:19)
[2020-07-09 07:22] VITALS: Ht 154.9 cm; Wt 84.1 kg
--- NOTE | 2020-07-09 13:55 | NUR ---
1045 ASSISTED ON BEDPAN. VOIDED ADEQUET AMT. 1230 IV REMOVED AND INSTRUCTIONS GIVEN.
== END 2020-07-09 13:00 | disposition home or self-care (01) ==
LOC: D.CT 06:34
PROVIDERS: Radiology Vascular & Interventional Radiology; ATTEND Emergency Medicine
DX: R19.00 Intra-abdominal and pelvic swelling, mass and lump, unspecified site (principal)

== ENCOUNTER → 2020-07-14 12:15 | Outpatient (CLI) | payer MEDICARE, BC ==
[2020-07-09 07:22] VITALS: BMI 35.0
[~2020-07-14 12:15] MED LIST changes: +MYRBETRIQ25 MG PO
== END | disposition home or self-care (01) ==
LOC: D.LAB 12:15
PROVIDERS: ATTEND Surgery
DX: R19.09 Other intra-abdominal and pelvic swelling, mass and lump (principal)

== ENCOUNTER → 2020-07-19 15:03 | Outpatient (CLI) | payer MEDICARE, BC ==
[2020-07-09 07:22] VITALS: BMI 35.0
== END | disposition home or self-care (01) ==
LOC: D.LAB 15:03
PROVIDERS: ATTEND Surgery
DX: R19.09 Other intra-abdominal and pelvic swelling, mass and lump (principal)